=== PATIENT | male | born 1955 | race American Indian/Alaskan Native ===

== ENCOUNTER 2017-05-21 16:36 | Outpatient (CLI) | payer OTHER ==
[2017-05-21 17:26] LABS: Creatinine,Urine 24.5 mg/dL (0.1-20.0); Protein/Creatinine Ratio,Urine 0.41
[2017-05-21 17:31] LABS: Alanine Aminotransferase 23 units/L (7-56); Albumin 4.4 g/dL (3.9-5); BUN/Creatinine Ratio 13; Blood Urea Nitrogen 17 mg/dL (9-20); Calcium 9.1 mg/dL (8.4-10.2); Hemolysis Index 8
[2017-05-21 17:44] LABS: Basophils % (Auto) 0.6 % (0.0-1.8); Eosinophils # (Auto) 0.1 K/mm3 (0.0-0.4); Eosinophils % (Auto) 1.7 % (0.0-4.3); Hematocrit 39.6 % (35.5-45.6); Hemoglobin 13.1 gm/dl (11.8-15.2); Lymphocytes # (Auto) 1.4 K/mm3 (1.2-5.4); Lymphocytes % (Auto) 27.2 % (13.4-35.0); Mean Corpuscular HGB Conc 33 % (32-34); Mean Corpuscular Hemoglobin 30 pg (28-32); Mean Corpuscular Volume 92 fl (84-94); Monocytes # (Auto) 0.4 K/mm3 (0.0-0.8); Monocytes % (Auto) 7.4 % (0.0-7.3); Platelet Count 220 K/mm3 (140-440); Red Blood Count 4.33 M/mm3 (3.65-5.03); Red Cell Distribution Width 13.7 % (13.2-15.2)
== END 2017-05-21 16:37 | disposition home or self-care (01) ==
LOC: LAB 16:36
PROVIDERS: ATTEND Internal Medicine
DX: I12.9 Hypertensive chronic kidney disease with stage 1 through stage 4 chronic kidney disease, or unspecified chronic kidney disease (principal); N18.2 Chronic kidney disease, stage 2 (mild); R94.4 Abnormal results of kidney function studies; R80.1 Persistent proteinuria, unspecified; E78.00 Pure hypercholesterolemia, unspecified
CPT/HCPCS: 36415; 80053; 82570; 84156; 85025

== ENCOUNTER 2017-11-09 09:15 | Outpatient (CLI) | payer OTHER ==
[2017-11-09 09:49] LABS: Hematocrit 41.8 % (35.5-45.6); Mean Corpuscular HGB Conc 33 % (32-34); Mean Corpuscular Hemoglobin 31 pg (28-32); Mean Corpuscular Volume 92 fl (84-94); Platelet Count 187 K/mm3 (140-440); Red Blood Count 4.55 M/mm3 (3.65-5.03); Red Cell Distribution Width 13.8 % (13.2-15.2)
[2017-11-09 10:00] LABS: Alanine Aminotransferase 19 units/L (7-56); Albumin 4.2 g/dL (3.9-5); BUN/Creatinine Ratio 12; Blood Urea Nitrogen 17 mg/dL (9-20); Calcium 9.2 mg/dL (8.4-10.2); Hemolysis Index 2
[2017-11-10 20:33] LABS: Protein/Creatinine Ratio,Urine 0.1
== END 2017-11-09 09:16 | disposition home or self-care (01) ==
LOC: LAB 09:15
PROVIDERS: ATTEND Internal Medicine
DX: N18.2 Chronic kidney disease, stage 2 (mild) (principal)
CPT/HCPCS: 36415; 80053; 82570; 84156; 85027

== ENCOUNTER 2020-02-10 12:58 | Emergency (ER) | payer MEDICARE, OTHER ==
[2020-02-10] MEDS ORDERED: ASPIRIN 325 MG TAB PO ONE (13:05)
--- NOTE | 2020-02-10 13:37 | XRay Report ---
CHEST 1 VIEW INDICATION / CLINICAL INFORMATION: Chest Pain. COMPARISON: None available. FINDINGS: SUPPORT DEVICES: None. HEART / MEDIASTINUM: No significant abnormality. LUNGS / PLEURA: No significant pulmonary or pleural abnormality. No pneumothorax or pleural effusion. ADDITIONAL FINDINGS: No significant additional findings. IMPRESSION: 1. No acute findings. Signer Name: Daniel Waters MD Signed: 02/10/2020 1:33 PM Workstation Name: [id number]
[2020-02-10 13:44] LABS: Basophils % (Auto) 0.8 % (0.0-1.8); Eosinophils # (Auto) 0.3 K/mm3 (0.0-0.4); Eosinophils % (Auto) 7.8 % (0.0-4.3); Hematocrit 39.6 % (35.5-45.6); Hemoglobin 13.5 gm/dl (11.8-15.2); Lymphocytes # (Auto) 1.5 K/mm3 (1.2-5.4); Lymphocytes % (Auto) 34.5 % (13.4-35.0); Mean Corpuscular HGB Conc 34 % (32-34); Mean Corpuscular Volume 95 fl (84-94); Monocytes # (Auto) 0.3 K/mm3 (0.0-0.8); Monocytes % (Auto) 7.2 % (0.0-7.3); Platelet Count 175 K/mm3 (140-440); Red Blood Count 4.18 M/mm3 (3.65-5.03); Red Cell Distribution Width 13.8 % (13.2-15.2)
[2020-02-10 14:01] LABS: BUN/Creatinine Ratio 13; Blood Urea Nitrogen 19 mg/dL (9-20); Calcium 9.1 mg/dL (8.4-10.2); Hemolysis Index 5
--- NOTE | 2020-02-10 14:16 | XRay Report ---
CERVICAL SPINE 4 VIEWS INDICATION / CLINICAL INFORMATION: radicular pain right arm. COMPARISON: None available. FINDINGS: VERTEBRAE: No acute fracture. No significant malalignment. DISC SPACES / FACET JOINTS:Multilevel degenerative changes are noted of the spine with endplate irreg ularity and uncovertebral hypertrophy most prominent at the C5-C6 level. PARASPINAL SOFT TISSUES:No significant abnormality. ADDITIONAL FINDINGS: None. Signer Name: Daniel Waters MD Signed: 02/10/2020 2:12 PM Workstation Name: [id number]
--- NOTE | 2020-02-10 14:37 | Emergency Department Report ---
ED Chest Pain HPI - General Chief Complaint: Chest Pain Stated Complaint: CHEST AND BACK PAIN Time Seen by Provider: 02/10/20 13:16 Source: patient Mode of arrival: Ambulatory Limitations: No Limitations - History of Present Illness Initial Comments: Patient is a 64-year-old F [place] male with past medical history of HTN, DM who is presenting with some right-sided chest discomfort. Patient states he tries to stay active and does workout. Patient has noticed some discomfort in the right upper chest and shoulder neck and upper back for the past week off and on. States there is sometimes radiating pain down the right arm down to his fingers. He denies any cough or shortness of breath. Patient states that the pain is worse with movement better with rest and is 5 out of 10 in severity at its worse. Severity scale (0 -10): 4 - Related Data Previous Rx's Medication Instructions Recorded Last Taken Type methOCARBAMOL [Robaxin TAB] 500 mg PO Q6H PRN #14 tablet 02/10/20 Unknown Rx traMADoL [Ultram] 50 mg PO Q6HR PRN #12 tablet 02/10/20 Unknown Rx Allergies Allergy/AdvReac Type Severity Reaction Status Date / Time bromfenac sodium Allergy Severe Swelling Verified 02/10/20 13:38 [From Duract] Penicillins Allergy Severe Swelling Verified 02/10/20 13:38 Heart Score - HEART Score History: Slightly suspicious EKG: Normal Age: 45-65 Risk factors: 1-2 risk factors Troponin: < normal limit HEART Score: 2 ED Review of Systems ROS: Stated complaint: CHEST AND BACK PAIN Other details as noted in HPI Comment: All other systems reviewed and negative ED Past Medical Hx - Past Medical History Previous Medical History?: Yes Hx Hypertension: Yes Hx Diabetes: Yes (prediabetic) Additional medical history: ENMA. No dialysis - Surgical History Past Surgical History?: Yes Additional Surgical History: Dental - Social History Smoking Status: Never Smoker Substance Use Type: None - Medications Home Medications: Home Medications Medication Instructions Recorded Confirmed Last Taken Type methOCARBAMOL [Robaxin TAB] 500 mg PO Q6H PRN #14 tablet 02/10/20 Unknown Rx traMADoL [Ultram] 50 mg PO Q6HR PRN #12 tablet 02/10/20 Unknown Rx ED Physical Exam - General Limitations: No Limitations General appearance: alert, in no apparent distress - Head Head exam: Present: atraumatic, normocephalic - Eye Eye exam: Present: normal appearance - ENT ENT exam: Present: mucous membranes moist - Neck Neck exam: Present: normal inspection - Respiratory Respiratory exam: Present: normal lung sounds bilaterally. Absent: respiratory distress, wheezes, rales, rhonchi - Cardiovascular Cardiovascular Exam: Present: regular rate, normal rhythm, normal heart sounds. Absent: systolic murmur, diastolic murmur, rubs, gallop - GI/Abdominal GI/Abdominal exam: Present: soft, normal bowel sounds. Absent: distended, tenderness, guarding, rebound - Rectal Rectal exam: Present: deferred - Extremities Exam Extremities exam: Present: normal inspection - Back Exam Back exam: Present: normal inspection - Neurological Exam Neurological exam: Present: alert, oriented X3 - Psychiatric Psychiatric exam: Present: normal affect, normal mood - Skin Skin exam: Present: warm, dry, intact, normal color. Absent: rash ED Course Vital Signs 02/10/20 13:24 Temperature 98.5 F Pulse Rate 78 Respiratory 12 Rate Blood Pressure 144/84 [Left] O2 Sat by Pulse 100 Oximetry ED Medical Decision Making - Lab Data Result diagrams: 02/10/20 13:15 02/10/20 13:15 Lab Results 02/10/20 02/10/20 Range/Units 13:15 13:15 WBC 4.5 (4.5-11.0) K/mm3 RBC 4.18 (3.65-5.03) M/mm3 Hgb 13.5 (11.8-15.2) gm/dl Hct 39.6 (35.5-45.6) % MCV 95 H (84-94) fl MCH 32 (28-32) pg MCHC 34 (32-34) % RDW 13.8 (13.2-15.2) % Plt Count 175 (140-440) K/mm3 Lymph % (Auto) 34.5 (13.4-35.0) % [place] % (Auto) 7.2 (0.0-7.3) % Eos % (Auto) 7.8 H (0.0-4.3) % Baso % (Auto) 0.8 (0.0-1.8) % Lymph # (Auto) 1.5 (1.2-5.4) K/mm3 [place] # (Auto) 0.3 (0.0-0.8) K/mm3 Eos # (Auto) 0.3 (0.0-0.4) K/mm3 Baso # (Auto) 0.0 (0.0-0.1) K/mm3 Seg Neutrophils % 49.7 (40.0-70.0) % Seg Neutrophils # 2.2 (1.8-7.7) K/mm3 Sodium 143 (137-145) mmol/L Potassium 4.2 (3.6-5.0) mmol/L Chloride 105.2 (98-107) mmol/L Carbon Dioxide 23 (22-30) mmol/L Anion Gap 19 mmol/L BUN 19 (9-20) mg/dL Creatinine 1.5 H (0.8-1.3) mg/dL Estimated GFR 57 ml/min BUN/Creatinine Ratio 13 % Glucose 151 H (75-100) mg/dL Calcium 9.1 (8.4-10.2) mg/dL Troponin T < 0.010 (0.00-0.029) ng/mL - EKG Data -: EKG Interpreted by [facility] EKG shows normal: sinus rhythm, axis, intervals, QRS complexes, ST-T waves Rate: normal - EKG Data Interpretation: normal EKG (except LAFB) - Radiology Data [facility] [address] [place] [address] XRay Report Signed Patient: ANGELA HUNT MR#: [id number] : 1955 Acct:[id number] Age/Sex: 64 / M ADM Date: 02/10/20 Loc: ED Attending Dr: Ordering Physician: AZUCENA COLLINS MD Date of Service: 02/10/20 Procedure(s): XR chest 1V ap Accession Number(s): [id number] cc: AZUCENA COLLINS MD Fluoro Time In Minutes: CHEST 1 VIEW INDICATION / CLINICAL INFORMATION: Chest Pain. COMPARISON: None available. FINDINGS: SUPPORT DEVICES: None. HEART / MEDIASTINUM: No significant abnormality. LUNGS / PLEURA: No significant pulmonary or pleural abnormality. No pneumothorax or pleural effusion. ADDITIONAL FINDINGS: No significant additional findings. IMPRESSION: 1. No acute findings. Signer Name: Daniel Waters MD Signed: 02/10/2020 1:33 PM Workstation Name: [id number] Ordering Physician: AZUCENA COLLINS MD Date of Service: 02/10/20 Procedure(s): XR spine cervical 2-3V Accession Number(s): [id number] cc: AZUCENA COLLINS MD Fluoro Time In Minutes: CERVICAL SPINE 4 VIEWS INDICATION / CLINICAL INFORMATION: radicular pain right arm. COMPARISON: None available. FINDINGS: VERTEBRAE: No acute fracture. No significant malalignment. DISC SPACES / FACET JOINTS:Multilevel degenerative changes are noted of the spine with endplate irregularity and uncovertebral hypertrophy most prominent at the C5-C6 level. PARASPINAL SOFT TISSUES:No significant abnormality. ADDITIONAL FINDINGS: None. Signer Name: Daniel Waters MD Signed: 02/10/2020 2:12 PM Workstation Name: [id number] - Medical Decision Making Patient's pain is likely secondary to cervical radiculopathy. Patient has significant degenerative changes in his cervical spine. Patient was started on Robaxin and ibuprofen and given follow-up with [facility] Critical care attestation.: If time is entered above; I have spent that time in minutes in the direct care of this critically ill patient, excluding procedure time. ED Disposition Clinical Impression: Cervical radiculopathy, Chest wall pain Disposition: DC-01 TO HOME OR SELFCARE Is pt being admited?: No Does the pt Need Aspirin: No Condition: Stable Instructions: Chest Pain (ED) Referrals: ANKIT REID II, MD [Staff Physician] - 3-5 Days Time of Disposition: 14:42
[2020-02-10 15:05] VITALS: BP 135/86
== END 2020-02-10 15:04 | disposition home or self-care (01) ==
LOC: ED 12:58
DX: R07.89 Other chest pain (principal); M54.12 Radiculopathy, cervical region; I10 Essential (primary) hypertension; E11.9 Type 2 diabetes mellitus without complications; Z88.0 Allergy status to penicillin; Z88.1 Allergy status to other antibiotic agents
CPT/HCPCS: 36415; 71045; 72040; 80048; 84484; 85025; 93005